=== PATIENT | female | born 1990 ===

== ENCOUNTER 2018-03-26 12:03 | Emergency (ER) | payer SELFPAY ==
[2018-03-26 12:37] VITALS: BP 105/68
[2018-03-26 13:31] LABS: Bacteria,Urine 1+ /HPF (Negative); Bilirubin,Urine NEG (Negative); Blood,Urine MOD (Negative); Color,Urine Amber (Yellow); Mucus,Urine 2+ /HPF; Urobilinogen,Urine < 2.0 mg/dL (<2.0)
[2018-03-26 13:57] LABS: HCG Qualitative,Urine Positive (Negative)
--- NOTE | 2018-03-29 14:42 | ED Elopement Review ---
ED Pt Elopement review - Results review Lab results: Laboratory Tests 03/26/18 12:25 Urine Color [place] Urine Turbidity Clear Urine pH 5.0 Ur Specific [place] 1.029 Urine Protein 30 mg/dl Urine Glucose (UA) Neg Urine Ketones Tr Urine Blood Mod Urine Nitrite Neg Urine Bilirubin Neg Urine Urobilinogen < 2.0 Ur Leukocyte Esterase Lg Urine WBC (Auto) 17.0 H Urine RBC (Auto) 167.0 U Epithel Cells (Auto) 16.0 H Urine Bacteria (Auto) 1+ Urine Mucus 2+ Urine Yeast (Budding) Few Urine HCG, Qual Positive A - Call Back decision Pt Call Back Decision: Call pt to return to ED [facility]ARY
== END 2018-03-26 16:25 | disposition left against medical advice (07) ==
LOC: ED 12:03
DX: R10.9 Unspecified abdominal pain (principal); Z53.21 Procedure and treatment not carried out due to patient leaving prior to being seen by health care provider
CPT/HCPCS: 81001; 81025